=== PATIENT | female | born 1935 | race Caucasian/White ===

== ENCOUNTER 2016-10-16 11:13 | Emergency (ER) | payer MEDICARE, BC ==
[~2016-10-16 11:13] MED LIST: ALPRAZOLAM0.5 M3 PO; ALPRAZOLAM0.5 MG PO; ALTACE10 MG PO; ALTACE5 MG; ANTIVERT25 MG PO; CALCIUM + D T1 UDTAB PO; CALCIUM 600 +1 EAC2 PO; CELEXA20 MG PO; CENTRUM TABLET1 TAB PO; COREG6.25 MG; COZAAR100 M1 PO; DARVOCET; DARVOCET-N 1001 TAB; ESCITALOPRAM OX20 M1 PO; ESZOPICLONE3 M1 PO; LEXAPRO20 M1 PO; LEXAPRO20 M2 PO; LOSARTAN POTAS100 MG PO; LUNESTA2 M1 PO; LUNESTA2 MG PO; LUNESTA3 M1 PO; LUNESTA3 MG PO; MAALOX REGULAR600 MG PO; MAALOX SUSPENSI30 ML PO; MAG-AL PLUS XS30 ML PO; MIRTAZAPINE30 MG; MULTIVITAMIN1 CAP; MULTIVITAMIN1 TAB PO; OMEPRAZOLE20 M1 PO; OMEPRAZOLE20 MG PO; OMEPRAZOLE40 M2 PO; PROTONIX40 MG; RAMIPRIL10 MG PO; REMERON30 MG; TOVIAZ4 MG/TAB PO; TRAMADOL HCL50 M1 PO; TYLENOL325 MG PO; ULTRAM50 M1 PO; ULTRAM50 MG PO; [UNRECOGNIZED DRUG - OTHER] PO
[2016-10-16] MEDS ORDERED: REMERON15 M1 PO (11:38)
[2016-10-16] MEDS ORDERED: BUSPIRONE HCL5 M1 PO (11:38)
[2016-10-16] MEDS ORDERED: ULTRAM50 M1 PO (11:39)
[2016-10-16] MEDS ORDERED: BYSTOLIC10 M1 PO (11:39)
[2016-10-16] MEDS ORDERED: PEPCID40 M1 PO (11:40)
[2016-10-16] MEDS ORDERED: ADVIL200 M2 PO (11:56)
[2016-10-16] MEDS ORDERED: MELATONIN5 M5 PO (11:56)
[2016-10-16] MEDS ORDERED: CENTRUM SILVER1 EAC6 PO (11:57)
[2016-10-16] MEDS ORDERED: TUMS200 MG PO (11:57)
[2016-10-16 12:05] LABS: BASO % 0.5 % (0-2); EOS % 1.3 % (0-7); EOSINOPHIL ABSOLUTE COUNT 0.1 tho/cmm (0.0-0.7); HCT-HEMATOCRIT 42.4 % (34.0-49.0); HGB-HEMOGLOBIN 14.1 gm/dl (12.0-15.5); IMMATURE GRANULOCYTES ABSOLUTE 0.01 tho/cmm (0-0.03); IMMATURE GRANULOCYTES PERCENT 0.1 % (0-0.3); LYMPH % 14.7 % (20-45); LYMPH ABSOLUTE COUNT 1.1 tho/cmm (0.8-4.5); MCH (MEAN CORPUSCULAR HGB) 31.4 pg (28.0-32.0); MCHC MEAN CORPUSCULAR HGB CONC 33.3 % (32.0-36.0); MCV (MEAN CELL VOLUME) 94.4 fl (82.0-96.0); MEAN PLATELET VOLUME 11.2 cmc (9.4-12.4); MONO % 5.3 % (0-12); MONOCYTE ABSOLUTE COUNT 0.4 tho/cmm (0.0-1.2); NEUTROPHILS % 78.1 % (40-80); PLATELET COUNT 238 tho/cmm (150-450); RED BLOOD COUNT 4.49 mil/cmm (4.00-5.20); RED CELL DISTRIBUTION WIDTH 13.8 % (12.4-16.4); WHITE BLOOD COUNT 7.7 tho/cmm (4.0-10.0)
[2016-10-16 12:09] LABS: INR 0.9 INR (0.9-1.1); PROTHROMBIN TIME 10.8 SECONDS (9.0-13.6)
[2016-10-16 12:19] LABS: ALBUMIN 3.8 g/dl (3.5-5.0); ALKALINE PHOSPHATASE 72 U/L (33-138); ALT/SGPT 16 U/L (12-78); ANION GAP 11 mmol/L (0-20); AST/SGOT 16 U/L (10-40); BILIRUBIN,TOTAL 0.7 mg/dl (0-1.5); BLOOD UREA NITROGEN 14 mg/dl (6-24); CALCIUM 9.3 mg/dl (8.5-10.5); CARBON DIOXIDE-VENOUS 28 mmol/L (22-32); CHLORIDE 105 mmol/l (96-110); CREATININE 0.99 mg/dl (0.50-1.10); GLUCOSE 169 mg/dL (70-110); POTASSIUM 3.6 mmol/L (3.7-5.1); SODIUM 140 mmol/L (135-145); eGFR VALUE FOR BLACK 63 mL/Min
== END 2016-10-16 14:10 ==
LOC: EDMED 11:13
PROVIDERS: Emergency Medicine
DX: I16.0 Hypertensive urgency (principal); F41.9 Anxiety disorder, unspecified; F32.9 Major depressive disorder, single episode, unspecified; Z90.49 Acquired absence of other specified parts of digestive tract; Z79.82 Long term (current) use of aspirin; Z79.899 Other long term (current) drug therapy